=== PATIENT | male | born 1995 | race Caucasian/White ===

== ENCOUNTER 2017-01-29 07:10 | Emergency (ER) | payer OTHER ==
[~2017-01-29] VITALS: Ht 172.7 cm; Wt 70.3 kg
[2017-01-29] MEDS ORDERED: KEFLEX500 MG PO (07:38)
== END 2017-01-29 08:18 | disposition home or self-care (01) ==
LOC: ED 07:10
DX: S91.331A Puncture wound without foreign body, right foot, initial encounter (principal); F17.200 Nicotine dependence, unspecified, uncomplicated; Z88.6 Allergy status to analgesic agent; W45.8XXA Other foreign body or object entering through skin, initial encounter
CPT/HCPCS: 73630; 90471; 90715; 99283